=== PATIENT | female | born 1945 | race Caucasian/White ===

== ENCOUNTER 2018-06-21 09:45 | Inpatient (IN) | payer MEDICARE, BC ==
[2018-06-21] VITALS (25 sets, daily range): BP systolic 70–138; BP diastolic 29–97; BMI 32.6
[~2018-06-21] VITALS: Ht 172.7 cm; Wt 97.1 kg
[2018-06-21] MEDS ORDERED: CARAFATE1 G/10 ML PO (10:32)
[2018-06-21] MEDS ORDERED: GALZIN50 MG PO (10:33)
[2018-06-21] MEDS ORDERED: CILOSTAZOL100 MG PO (10:33)
[2018-06-21] MEDS ORDERED: NEURONTIN600 MG PO (10:33)
[2018-06-21] MEDS ORDERED: LOPID600 MG PO (10:33)
[2018-06-21] MEDS ORDERED: FUROSEMIDE20 MG PO (10:34)
[2018-06-21] MEDS ORDERED: PLAVIX75 MG PO (10:34)
[2018-06-21] MEDS ORDERED: VITAMIN C WIT1000 MG PO (10:34)
[2018-06-21] MEDS ORDERED: COLACE100 MG PO (10:34)
[2018-06-21] MEDS ORDERED: LEVOXYL50 MCG PO (10:35)
[2018-06-21] MEDS ORDERED: PENTOXIFYLLINE400 MG PO (10:35)
[2018-06-21] MEDS ORDERED: SINGULAIR10 MG PO (10:35)
[2018-06-21] MEDS ORDERED: VESICARE10 MG PO (10:35)
[2018-06-21] MEDS ORDERED: PANTOPRAZOLE SO40 M1 IV (10:36)
[2018-06-21 11:08] LABS: BASOPHILS 0.2 % (0-2); EOSINOPHILS 0.4 % (0-7); HEMATOCRIT 32.6 % (36.0-48.0); HEMOGLOBIN 9.6 g/dL (12-16); IMMATURE GRANULOCYTES 0.7 % (0-5); LYMPHOCYTES 33.4 % (15-50); MCH 21.8 pg (26.0-34.0); MCHC 29.4 g/dL (31.0-37.0); MCV 74.1 fL (80.0-100.0); MEAN PLATELET VOLUME 9.5 fL (7.4-10.4); MONOCYTES 8.9 % (2-11); NEUTROPHILS 56.4 % (40-80); PLATELET COUNT 103 10x3/uL (130-400); RDW 17.3 % (11.5-14.5); WBC 5.5 10x3/uL (4.8-10.8)
[2018-06-21 12:30] LABS: APTT 25.5 SECONDS (22.8-39.4); INR 1.05 (0.85-1.17); PROTIME 13.2 SECONDS (11.6-15.0)
[2018-06-21 12:31] LABS: % SATURATION 6 % (15-55); IRON 27 ug/dl (35-150); TOTAL IRON BIND CAPACITY 447 ug/dl (260-445); UNSAT IRON BIND CAPACITY 420 ug/dl (150-375)
--- NOTE | 2018-06-21 13:19 | NUR ---
PT ARRIVED ON UNIT, HOOKED TO MONITORS, PT IS ALERT AND ORIENTED, ON 2L NC, VSS, CALL LIGHT IN REACH
--- NOTE | 2018-06-21 14:30 | NUR ---
UPDATE GIVEN TO DR. HAMMER AT THIS TIME, NEW ORDERS RECIEVED
--- NOTE | 2018-06-21 15:27 | MORECARE ---
CASE MANAGEMENT DISCHARGE SUMMARY PATIENT: MANOJ BURRIS UNIT: [id number] ADM DATE: 06/21/18 AGE: 73 : 47 SEX: F ROOM/BED: D[facility] AUTHOR: TYLOR HERNANDEZ PHYSICIAN: REFERRING PHYSICIAN: RAYMOND ASHBY MD DATE OF SERVICE: 06/21/18 Discharge Plan Patient Name: MANOJ BURRIS Facility: [facility]:[place] : 1945 Planned Disposition: Anticipated Discharge Date: Discharge Date: Expected LOS: Initial Reviewer: [email or web address] Initial Review Date: 06/21/2018 Generated: 06/21/18 4:27 pm Patient Name: MANOJ BURRIS Page 66241 at 1527 All edits/amendments must be made on the electronic document DICTATION DATE: 06/21/18 152 CLINICAL TRAINING COORDINATOR: MATY 06/21/18 1526 RPT#: [id number] DC DATE: STATUS: ADM IN [facility] [address] [place] [address] END OF REPORT
[2018-06-21 16:00] LABS: CKMB 1.2 U/L (0.0-3.6); CREATINE KINASE 97 UL (21-215); TROPONIN-I 0.018 ng/mL (0.000-0.060)
--- NOTE | 2018-06-21 16:17 | NUR ---
DR. CARTER AT BEDSIDE, UPDATE GIVEN
--- NOTE | 2018-06-21 16:25 | NUR ---
EGD IN PROCESS AT THIS TIME, PT TOLERATING WELL
--- NOTE | 2018-06-21 16:57 | NUR ---
UPDATE CALLED TO ELISEO ESPOSITO TO TRANSFER TO THE FLOOR
--- NOTE | 2018-06-21 17:40 | NUR ---
REPORT CALLED TO MED SURG,
--- NOTE | 2018-06-21 18:15 | NUR ---
PT RECIEVED TO FLOOR. PT AAO X3 TO PERSON, PLACE, ADN TIME. DENIES NEEDS AT THIS TIME.
[2018-06-21 21:59] LABS: CKMB 1.1 U/L (0.0-3.6); CREATINE KINASE 102 UL (21-215); TROPONIN-I 0.025 ng/mL (0.000-0.060)
[2018-06-22 04:22] VITALS: BP 137/62
[2018-06-22 04:51] LABS: BASOPHILS 0.2 % (0-2); EOSINOPHILS 0.4 % (0-7); HEMATOCRIT 28.3 % (36.0-48.0); HEMOGLOBIN 8.2 g/dL (12-16); IMMATURE GRANULOCYTES 0.2 % (0-5); LYMPHOCYTES 36.3 % (15-50); MCH 21.5 pg (26.0-34.0); MCV 74.3 fL (80.0-100.0); MEAN PLATELET VOLUME 9.6 fL (7.4-10.4); MONOCYTES 12.1 % (2-11); NEUTROPHILS 50.8 % (40-80); PLATELET COUNT 95 10x3/uL (130-400); RBC 3.81 10x6/uL (4.00-5.40); RDW 17.2 % (11.5-14.5); WBC 4.8 10x3/uL (4.8-10.8)
[2018-06-22 05:25] LABS: CALC OSMOLALITY 287 mosm/kg (275-300); CALCIUM 7.4 mg/dL (8.5-10.1); CARBON DIOXIDE 23.4 mmol/L (21.0-32.0); CHLORIDE - SERUM 113 mmol/L (98-107); CKMB 1.2 U/L (0.0-3.6); CREATINE KINASE 75 UL (21-215); CREATININE - SERUM 0.5 mg/dL (0.6-1.3); GLUCOSE 83 mg/dL (74-106); POTASSIUM - SERUM 3.4 mmol/L (3.5-5.1); SODIUM 145 mmol/L (136-145); UREA NITROGEN 12 mg/dL (7-18); eGFR NON AFRICAN AMERICAN > 90 mL/min (90-120)
[2018-06-22 07:14] LABS: FOLATE (FOLIC ACID) - SERUM 10.8 ng/mL (>3.0)
[2018-06-22 08:40] VITALS: BP 150/69
--- NOTE | 2018-06-22 13:00 | NUR ---
PATIENT OFF FLOOR FOR MRI
[2018-06-22 13:18] LABS: % SATURATION 4 % (15-55); IRON 15 ug/dl (35-150); TOTAL IRON BIND CAPACITY 359 ug/dl (260-445); UNSAT IRON BIND CAPACITY 344 ug/dl (150-375)
--- NOTE | 2018-06-22 16:41 | MORECARE ---
CASE MANAGEMENT DISCHARGE SUMMARY PATIENT: MANOJ BURRIS UNIT: [id number] ADM DATE: 06/21/18 AGE: 73 : 47 SEX: F ROOM/BED: D.2238 AUTHOR: TYLOR HERNANDEZ PHYSICIAN: REFERRING PHYSICIAN: RAYMOND ASHBY MD DATE OF SERVICE: 06/22/18 Discharge Plan Patient Name: MANOJ BURRIS Facility: [facility]:[place] : 1945 Planned Disposition: Home Health Service Anticipated Discharge Date: Discharge Date: Expected LOS: Initial Reviewer: [email or web address] Initial Review Date: 06/21/2018 Generated: 06/22/18 5:41 pm Last DP export: 06/21/18 2:27 Patient Name: MANOJ BURRIS Page [id number] at 1641 All edits/amendments must be made on the electronic document DICTATION DATE: 06/22/181640 OILER AND GREASER: MATY 06/22/181640 RPT#: [id number] DC DATE: STATUS: ADM IN [facility] [address] [place] [address] END OF REPORT
--- NOTE | 2018-06-22 16:48 | MORECARE ---
CASE MANAGEMENT DISCHARGE SUMMARY PATIENT: MANOJ BURRIS UNIT: [id number] ADM DATE: 06/21/18 AGE: 73 : 47 SEX: F ROOM/BED: D.2238 AUTHOR: MARY,DOC PHYSICIAN: REFERRING PHYSICIAN: RAYMOND ASHBY MD DATE OF SERVICE: 06/22/18 Discharge Plan Patient Name: MANOJ BURRIS Facility: [facility]:[place] : 1945 Planned Disposition: Home Health Service Anticipated Discharge Date: Discharge Date: Expected LOS: Initial Reviewer: [email or web address] Initial Review Date: 06/21/2018 Generated: 06/22/18 5:48 pm Comments DCP- Discharge Planning Updated by [email or web address]: Lanie Celaya on 06/22/18 3:[address] CM attempted to visit x3. Physical address [address]/ [place]. Her son lives with her. She states she is presently on service ith [employer]. Her plan is to return to home w/ home health. She has ramps to enter her home. No DME needs. [facility]acy[facility] [place] [facility] CM will follow to assist with needs. DCPIA - Discharge Planning Initial Assessment Updated by [email or web address]: Lanie Celaya on 06/22/18 4:41 pm * Is the patient Alert and Oriented? Yes * How many steps to enter\\exit or inside your home? ramps * PCP DR Luis Enrique Avendaño * Pharmacy [facility] [place] for short term meds * Preadmission Environment Home with Family * ADLs Partial Dependent * Partial ADLs (Assistance needed) Bathing Dressing Transfers * Other Equipment patient has electric wheel chair, wheelchair, walker, shower bench, commode States "I've got it all". denies any dme needs * List name and contact numbers for known caregivers / representatives who currently or will assist patient after discharge: franki brooke- [phone] * Verbal permission to speak to the caregivers and representatives has been obtained from the patient. No * Community resources currently utilized Home Health * Please name any agencies selected above. [facility] * Additional services required to return to the preadmission environment? No * Can the patient safely return to the preadmission environment? Yes * Has this patient been hospitalized within the prior 30 days at any hospital? No Last DP export: 06/22/18 3:41 pm Patient Name: MANOJ BURRIS Page [id number] at 1648 All edits/amendments must be made on the electronic document DICTATION DATE: 06/22/181646 ANESTHESIOLOGY CRNA: MATY 06/22/181646 RPT#: [id number] DC DATE: STATUS: ADM IN [facility] [address] [place] [address] END OF REPORT
[2018-06-22 20:00] VITALS: BP 119/72
[2018-06-22 22:36] LABS: APPEARANCE CLEAR (CLEAR); BACTERIA FEW /hpf (NONE SEEN); BILIRUBIN NEGATIVE (NEGATIVE); COLOR YELLOW (YELLOW); EPITHELIAL CELLS 0-5 /hpf (0-5); GLUCOSE NEGATIVE (NEGATIVE); KETONE NEGATIVE (NEGATIVE); NITRITE NEGATIVE (NEGATIVE); PROTEIN TRACE mg/dL (NEGATIVE); RED CELLS - URINE 25-50 /hpf (0-5); SPECIFIC GRAVITY 1.015 (1.005-1.020); UROBILINOGEN NORMAL (NORMAL)
--- NOTE | 2018-06-23 02:02 | NUR ---
LYING IN BED WITH EYES CLOSED. RESP EVEN AND NONLABORED. NO DISTRESS. CL IN REACH.
[2018-06-23 04:00] VITALS: BP 125/47
--- NOTE | 2018-06-23 04:46 | NUR ---
PT COMPLAINS PF SLIGHT PAIN IN GROIN AREA. LEFT, INNER THIGH/GROIN AREA REDDENED. WASHED, BARIER SPRAY APPLIED AND POWDER APPLIED PER PT REQUEST. ALSO PT C/O FULL FEELING IN BLADDER. FOLOEY TUBING WAS KINKED BETWEEN LEGS. STRAIGHTENED OUT AND SECURED IN STAT LONG, LAYING OVER RIGHT THIGH. PT REPORTS RELIEF. 1200CC CLEAR YELLOW URINE EMPTIED FROM CATHETER.
[2018-06-23 04:53] LABS: BASOPHILS 0.4 % (0-2); EOSINOPHILS 0.2 % (0-7); HEMATOCRIT 29.7 % (36.0-48.0); HEMOGLOBIN 8.6 g/dL (12-16); IMMATURE GRANULOCYTES 0.2 % (0-5); LYMPHOCYTES 33.5 % (15-50); MCH 21.3 pg (26.0-34.0); MCV 73.7 fL (80.0-100.0); MEAN PLATELET VOLUME 9.2 fL (7.4-10.4); MONOCYTES 14.5 % (2-11); NEUTROPHILS 51.2 % (40-80); PLATELET COUNT 87 10x3/uL (130-400); RBC 4.03 10x6/uL (4.00-5.40); RDW 16.7 % (11.5-14.5); WBC 5.4 10x3/uL (4.8-10.8)
[2018-06-23 05:14] LABS: CALCIUM 8.2 mg/dL (8.5-10.1); CARBON DIOXIDE 25.7 mmol/L (21.0-32.0); CHLORIDE - SERUM 107 mmol/L (98-107); CREATININE - SERUM 0.5 mg/dL (0.6-1.3); SODIUM 142 mmol/L (136-145); UREA NITROGEN 10 mg/dL (7-18); eGFR NON AFRICAN AMERICAN > 90 mL/min (90-120)
[2018-06-23 05:31] LABS: CALC OSMOLALITY 284 mosm/kg (275-300); GLUCOSE 144 mg/dL (74-106); POTASSIUM - SERUM 4.3 mmol/L (3.5-5.1)
[2018-06-23 08:51] VITALS: BP 125/70
[2018-06-23 13:50] VITALS: Ht 172.7 cm; Wt 97.1 kg
[2018-06-23 16:00] VITALS: BP 137/57; BP 137/74
[2018-06-23 21:55] VITALS: BP 137/67
--- NOTE | 2018-06-24 00:44 | NUR ---
AWAKE. RECEIVING INSULIN AT THIS TIME PER PRIMARY NURSE. NO DISTRESS. CL IN REACH.
[2018-06-24 02:09] VITALS: BP 119/50
[2018-06-24 05:15] VITALS: BP 96/54
--- NOTE | 2018-06-24 05:30 | NUR ---
ROMAN CATH CARE PROVIDED. PT REPORTS RELIEF OF ITCHING/BURNING.
[2018-06-24 07:07] LABS: BASOPHILS 0.2 % (0-2); EOSINOPHILS 0.4 % (0-7); HEMATOCRIT 28.6 % (36.0-48.0); HEMOGLOBIN 8.6 g/dL (12-16); IMMATURE GRANULOCYTES 0.2 % (0-5); LYMPHOCYTES 32.8 % (15-50); MCH 21.6 pg (26.0-34.0); MCHC 30.1 g/dL (31.0-37.0); MEAN PLATELET VOLUME 9.9 fL (7.4-10.4); MONOCYTES 12.5 % (2-11); NEUTROPHILS 53.9 % (40-80); PLATELET COUNT 75 10x3/uL (130-400); RBC 3.99 10x6/uL (4.00-5.40); RDW 16.5 % (11.5-14.5); WBC 4.7 10x3/uL (4.8-10.8)
[2018-06-24 07:12] LABS: CALC OSMOLALITY 273 mosm/kg (275-300); CALCIUM 8.3 mg/dL (8.5-10.1); CARBON DIOXIDE 24.1 mmol/L (21.0-32.0); CHLORIDE - SERUM 105 mmol/L (98-107); CREATININE - SERUM 0.5 mg/dL (0.6-1.3); GLUCOSE 156 mg/dL (74-106); POTASSIUM - SERUM 3.7 mmol/L (3.5-5.1); SODIUM 136 mmol/L (136-145); UREA NITROGEN 11 mg/dL (7-18); eGFR NON AFRICAN AMERICAN > 90 mL/min (90-120)
[2018-06-24 07:16] LABS: MCV 71.7 fL (80.0-100.0)
[2018-06-24 08:10] VITALS: BP 106/61
[2018-06-24 12:16] VITALS: BP 144/66
[2018-06-24 16:09] VITALS: BP 139/66
[2018-06-24 20:00] VITALS: BP 113/62
[2018-06-25] VITALS: BP 134/69
--- NOTE | 2018-06-25 03:16 | NUR ---
PT SLEEPING. BREATHING EVEN AND UNLABORED. WILL CONTINUE POC.
[2018-06-25 04:00] VITALS: BP 151/68
[2018-06-25 07:33] LABS: BASOPHILS 0.2 % (0-2); EOSINOPHILS 0.5 % (0-7); HEMATOCRIT 28.9 % (36.0-48.0); HEMOGLOBIN 8.5 g/dL (12-16); IMMATURE GRANULOCYTES 0.2 % (0-5); LYMPHOCYTES 34.9 % (15-50); MCH 21.1 pg (26.0-34.0); MCHC 29.4 g/dL (31.0-37.0); MCV 71.9 fL (80.0-100.0); MONOCYTES 14.7 % (2-11); NEUTROPHILS 49.5 % (40-80); PLATELET COUNT 78 10x3/uL (130-400); RBC 4.02 10x6/uL (4.00-5.40); RDW 16.5 % (11.5-14.5); WBC 4.4 10x3/uL (4.8-10.8)
[2018-06-25 07:56] LABS: CALC OSMOLALITY 286 mosm/kg (275-300); CALCIUM 8.1 mg/dL (8.5-10.1); CARBON DIOXIDE 25.7 mmol/L (21.0-32.0); CHLORIDE - SERUM 107 mmol/L (98-107); CREATININE - SERUM 0.6 mg/dL (0.6-1.3); GLUCOSE 158 mg/dL (74-106); POTASSIUM - SERUM 3.6 mmol/L (3.5-5.1); SODIUM 142 mmol/L (136-145); UREA NITROGEN 15 mg/dL (7-18); eGFR NON AFRICAN AMERICAN > 90 mL/min (90-120)
[2018-06-25 08:20] LABS: PLATELET ESTIMATE DECREASED
[2018-06-25 08:21] LABS: ANISOCYTOSIS 1+
[2018-06-25 08:29] VITALS: BP 144/54
--- NOTE | 2018-06-25 08:45 | NUR ---
PATIENT RESITNG WITH NO NEEDS VOICED. ROMAN CATH DRAINING YELLOW URINE TO BEDISDE DRAINAGE. DENIES PAIN AT THIS TIME.
[2018-06-25 11:42] VITALS: BP 116/62
--- NOTE | 2018-06-25 15:55 | NUR ---
ROMAN CATH REMOVED, PATIENT TOLERATED WELL
--- NOTE | 2018-06-25 16:09 | MORECARE ---
CASE MANAGEMENT DISCHARGE SUMMARY PATIENT: MANOJ BURRIS UNIT: [id number] ADM DATE: 06/21/18 AGE: 73 : 47 SEX: F ROOM/BED: D.2238 AUTHOR: MARY,DOC PHYSICIAN: REFERRING PHYSICIAN: RAYMOND ASHBY MD DATE OF SERVICE: 06/25/18 Discharge Plan Patient Name: MANOJ BURRIS Facility: [facility]:[place] : 1945 Planned Disposition: Home Health Service Anticipated Discharge Date: Discharge Date: Expected LOS: Initial Reviewer: [email or web address] Initial Review Date: 06/21/2018 Generated: 06/25/18 5:08 pm Comments DCP- Discharge Planning Updated by [email or web address]: Radha Sarabia on 06/25/18 3:[address] Patient Name: MANOJ BURRIS Encounter No: [id number] : 1945 Primary Insurance: MEDICARE A & B Anticipated DC Date: Planned Disposition: Home Health Service External Planned Provider: : DCP follow-up note: Patient in agreement with discharge plan. Spoke with Yennifer at [employer] [facility] and clinical faxed. States her son will take her home.No changes to plan. Case management will follow and assist as needed. Radha Herbkeon DCP- Discharge Planning Updated by [email or web address]: Lanie Celaya on 06/22/18 3:[address] CM attempted to visit x3. Physical address [address]/ [place]. Her son lives with her. She states she is presently on service ith [employer] [facility]. Her plan is to return to home w/ home health. She has ramps to enter her home. No DME needs. [facility] [place] [facility] CM will follow to assist with needs. DCPIA - Discharge Planning Initial Assessment Updated by [email or web address]: Lanie Celaya on 06/22/18 4:41 pm * Is the patient Alert and Oriented? Yes * How many steps to enter\\exit or inside your home? ramps * PCP DR Luis Enrique Avendaño * Pharmacy [facility] in [place] for short term meds * Preadmission Environment Home with Family * ADLs Partial Dependent * Partial ADLs (Assistance needed) Bathing Dressing Transfers * Other Equipment patient has electric wheel chair, wheelchair, walker, shower bench, commode States "I've got it all". denies any dme needs * List name and contact numbers for known caregivers / representatives who currently or will assist patient after discharge: franki brooke- [phone] * Verbal permission to speak to the caregivers and representatives has been obtained from the patient. No * Community resources currently utilized Home Health * Please name any agencies selected above. [facility] * Additional services required to return to the preadmission environment? No * Can the patient safely return to the preadmission environment? Yes * Has this patient been hospitalized within the prior 30 days at any hospital? No Coverage Notice Reviewer: [email or web address] Silvano Sarabia Notice Issued Date-Time: 06/25/2018 16:02 Notice Type: IM Discharge Notice Notice Delivered To: Patient Relationship to Patient: Self Planner/Scheduler Name: Delivery Method: HAND - Hand Delivered Shanice Days: Prior Verbal Notification: Recipient Understood Notice: Yes Recipient Signature: Yes Med Rec Note Co-signed by Attending: Coverage Notice Comment: IMM explained, signed, copy given, original placed in MR Last DP export: 06/22/18 3:48 pm Patient Name: MANOJ BURRIS Page 69640 at 1609 All edits/amendments must be made on the electronic document DICTATION DATE: 06/25/181607 LOCAL TANKER TRUCK DRIVER: MATY 06/25/181607 RPT#: [id number] DC DATE: STATUS: ADM IN [facility] [address] [place] [address] END OF REPORT
[2018-06-25 16:13] VITALS: BP 113/49
--- NOTE | 2018-06-25 16:18 | MORECARE ---
CASE MANAGEMENT DISCHARGE SUMMARY PATIENT: MANOJ BURRIS UNIT: [id number] ADM DATE: 06/21/18 AGE: 73 : 47 SEX: F ROOM/BED: D.2238 AUTHOR: MARY,DOC PHYSICIAN: REFERRING PHYSICIAN: RAYMOND ASHBY MD DATE OF SERVICE: 06/25/18 Discharge Plan Patient Name: MANOJ BURRIS Facility: [facility]:[place] : 1945 Planned Disposition: Home Health Service Anticipated Discharge Date: Discharge Date: Expected LOS: Initial Reviewer: [email or web address] Initial Review Date: 06/21/2018 Generated: 06/25/18 5:18 pm Comments DCP- Discharge Planning Updated by [email or web address]: Radha Sarabia on 06/25/18 3:[address] Patient Name: MANOJ BURRIS Encounter No: [id number] : 1945 Primary Insurance: MEDICARE A & B Anticipated DC Date: Planned Disposition: Home Health Service External Planned Provider: : DCP follow-up note: Patient in agreement with discharge plan. Spoke with Yennifer at [email or web address] [facility] and clinical faxed. States her son will take her home.No changes to plan. Case management will follow and assist as needed. Radha Herbkeon DCP- Discharge Planning Updated by [id number]: Lanie Celaya on 06/22/18 3:[address] CM attempted to visit x3. Physical address [address]/ [place]. Her son lives with her. She states she is presently on service ith [employer] [facility]. Her plan is to return to home w/ home health. She has ramps to enter her home. No DME needs. [facility] [place] [facility] CM will follow to assist with needs. DCPIA - Discharge Planning Initial Assessment Updated by [email or web address]: Lanie Celaya on 06/22/18 4:41 pm * Is the patient Alert and Oriented? Yes * How many steps to enter\\exit or inside your home? ramps * PCP DR Luis Enrique Avendaño * Pharmacy [facility] [place] for short term meds * Preadmission Environment Home with Family * ADLs Partial Dependent * Partial ADLs (Assistance needed) Bathing Dressing Transfers * Other Equipment patient has electric wheel chair, wheelchair, walker, shower bench, commode States "I've got it all". denies any dme needs * List name and contact numbers for known caregivers / representatives who currently or will assist patient after discharge: franki brooke- [phone] * Verbal permission to speak to the caregivers and representatives has been obtained from the patient. No * Community resources currently utilized Home Health * Please name any agencies selected above. [employer] * Additional services required to return to the preadmission environment? No * Can the patient safely return to the preadmission environment? Yes * Has this patient been hospitalized within the prior 30 days at any hospital? No External Providers External Provider: [facility] Next Contact Date: Service Request Date: Service Type: Resolution: Reviewer: Comments: Coverage Notice Reviewer: [email or web address] Silvano Sarabia Notice Issued Date-Time: 06/25/2018 16:02 Notice Type: IM Discharge Notice Notice Delivered To: Patient Relationship to Patient: Self Ship Scraper Name: Delivery Method: HAND - Hand Delivered Shanice Days: Prior Verbal Notification: Recipient Understood Notice: Yes Recipient Signature: Yes Med Rec Note Co-signed by Attending: Coverage Notice Comment: IMM explained, signed, copy given, original placed in MR Last DP export: 06/25/18 3:08 pm Patient Name: MANOJ BURRIS Page 68989 at 1618 All edits/amendments must be made on the electronic document DICTATION DATE: 06/25/181617 AUTHOR: MATY 06/25/181617 RPT#: [id number] DC DATE: STATUS: ADM IN [facility] [address] [place] [address] END OF REPORT
--- NOTE | 2018-06-25 18:06 | NUR ---
IV REMOVED WITH CATH INTACT, NO REDNESSOR EDEMA AT SITE. DISCHARGE INSTRUCTIONS GIVEN WITH PATIENT VOICING UNDERSTANDING. PATIENT TAKEN TO PRIVATE CAR VIA WHEELCHAIR, SON AT SIDE
--- NOTE | 2018-06-29 07:24 | MORECARE ---
CASE MANAGEMENT DISCHARGE SUMMARY PATIENT: MANOJ BURRIS UNIT: [id number] ADM DATE: 06/21/18 AGE: 73 : 47 SEX: F ROOM/BED: D.2238 AUTHOR: MARY,DOC PHYSICIAN: REFERRING PHYSICIAN: RAYMOND ASHBY MD DATE OF SERVICE: 06/29/18 Discharge Plan Patient Name: MANOJ BURRIS Facility: [facility]:[place] : 1945 Planned Disposition: Home Health Service Anticipated Discharge Date: Discharge Date: 06/25/2018 Expected LOS: 0 Initial Reviewer: [email or web address] Initial Review Date: 06/21/2018 Generated: 06/29/18 8:24 am Comments DCP- Discharge Planning Updated by [email or web address]: Radha Sarabia on 06/25/18 3:[address] Patient Name: MANOJ BURRIS Encounter No: [id number] : 1945 Primary Insurance: MEDICARE A & B Anticipated DC Date: Planned Disposition: Home Health Service External Planned Provider: : DCP follow-up note: Patient in agreement with discharge plan. Spoke with Yennifer at [employer] [facility] and clinical faxed. States her son will take her home.No changes to plan. Case management will follow and assist as needed. Radha Sarabia DCP- Discharge Planning Updated by [email or web address]: Lanie Celaya on 06/22/18 3:[address] CM attempted to visit x3. Physical address [address]/ [place]. Her son lives with her. She states she is presently on service ith [employer] [facility]. Her plan is to return to home w/ home health. She has ramps to enter her home. No DME needs. [facility] [place] [facility] CM will follow to assist with needs. DCPIA - Discharge Planning Initial Assessment Updated by [email or web address]: Lanie Celaya on 06/22/18 4:41 pm * Is the patient Alert and Oriented? Yes * How many steps to enter\\exit or inside your home? ramps * PCP DR Luis Enrique Avendaño * Pharmacy [facility] [place] for short term meds * Preadmission Environment Home with Family * ADLs Partial Dependent * Partial ADLs (Assistance needed) Bathing Dressing Transfers * Other Equipment patient has electric wheel chair, wheelchair, walker, shower bench, commode States "I've got it all". denies any dme needs * List name and contact numbers for known caregivers / representatives who currently or will assist patient after discharge: franki brooke- [phone] * Verbal permission to speak to the caregivers and representatives has been obtained from the patient. No * Community resources currently utilized Home Health * Please name any agencies selected above. [facility] * Additional services required to return to the preadmission environment? No * Can the patient safely return to the preadmission environment? Yes * Has this patient been hospitalized within the prior 30 days at any hospital? No Coverage Notice Reviewer: [email or web address] Silvano Sarabia Notice Issued Date-Time: 06/25/2018 16:02 Notice Type: IM Discharge Notice Notice Delivered To: Patient Relationship to Patient: Self Basket Hand Weaver Name: Delivery Method: HAND - Hand Delivered Shanice Days: Prior Verbal Notification: Recipient Understood Notice: Yes Recipient Signature: Yes Med Rec Note Co-signed by Attending: Coverage Notice Comment: IMM explained, signed, copy given, original placed in MR Last DP export: 06/25/18 3:18 pm Patient Name: MANOJ BURRIS Page 99079 at 0724 All edits/amendments must be made on the electronic document DICTATION DATE: 06/29/18723 CLINICAL NURSING PROFESSOR: MATY 06/29/18723 RPT#: [id number] DC DATE:06/25/18 STATUS: DIS IN [facility] [address] [place] [address] END OF REPORT
--- NOTE | 2018-07-06 13:28 | EC ---
PATIENT:MANOJ BURRIS DATE OF SERVICE: 06/21/18 SEX: F MEDICAL RECORD: [id number] DATE OF : [birth year] LOCATION:D.[facility] [place] AGE OF PATIENT: 73 ADMISSION DATE: 06/21/18 REFERRING PHYSICIAN: INTERPRETING PHYSICIAN: DARIO ROSS MD ECHOCARDIOGRAM REPORT ECHO CHARGES 4 ECHO COMPLETE Date: 06/21/18 CLINICAL DIAGNOSIS: LVF ECHOCARDIOGRAPHIC MEASUREMENTS (adult normal given) AC root (d.<3.7cm) 3.0 cm LV Septum d (<1.2 cm> 1.3 cm Valve Excursion 0.8 cm LV Septum (systole) 1.4 cm Left Atria (s.<4.0cm> 3.8 cm LVPW d(<1.2cm) 1.0 cm RV (d.<2.3cm) 3.8 cm LVPW (sytole) 1.1 cm LV diastole(<5.6CM) 5.1 cm MV E-F(>70mm/sec) cm LV systole 4.6 cm LVOT Diameter 1.7 cm MV exc.(>10mm) cm Est.ejection fraction (50-75%) % DOPPLER: LVIT cm/sec A 145 cm/sec E 136 cm/sec LA cm/sec RVSP 18.3 mmHg LVOT 187 cm/sec AOP1/2T m/s Asc. 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 Ross TAPE# PACS Pericardial Effusion N DATE OF SERVICE: 06/21/2018 ECHOCARDIOGRAM FINDINGS: 1. Left ventricular chamber size is within normal limits. Left ventricular systolic function is normal. Overall ejection fraction estimated at 55%. 2. Left atrium, right atrium, and right ventricle chamber sizes are within normal limits. 3. Valvular structures have normal structure and motion. ECHOCARDIOGRAM REPORT [id number] MANOJ BURRIS 4. Doppler interrogation reveals no significant valvular insufficiency or stenosis. 5. No evidence of pericardial effusion or left ventricular thrombus. TRANSINT:[id number] Voice Confirmation ID: [id number] DOCUMENT ID: [id number] DARIO ROSS MD at 1328 CC: [id number] DICTATION DATE: 06/21/18 164 FLOOR HELPER: 06/21/18 2351 DIS IN 06/25/18 [facility] [address] [place] [id number]
[2018-07-27] MEDS ORDERED: HUMALOG MIX 75/10 ML SC (13:50)
[2018-07-27] MEDS ORDERED: OXYBUTYNIN CHLOR5 M1 PO (13:50)
== END 2018-06-25 18:08 | disposition home health service (06) | DRG 314 ==
LOC: D.ER 09:45 → D.MS 12:50 → D.ICU 12:50 → D.MS 17:49
PROVIDERS: Emergency Medicine; Internal Medicine Gastroenterology; ADMIT Internal Medicine Nephrology
PROC: 0DB68ZX Excision of Stomach, Via Natural or Artificial Opening Endoscopic, Diagnostic (ICD-10-PCS; principal; 2018-06-21 15:44)
DX: I95.9 Hypotension, unspecified (principal); R57.8 Other shock; K29.01 Acute gastritis with bleeding; N39.0 Urinary tract infection, site not specified; D64.9 Anemia, unspecified; E11.9 Type 2 diabetes mellitus without complications; I10 Essential (primary) hypertension; S82.301A Unspecified fracture of lower end of right tibia, initial encounter for closed fracture; W19.XXXA Unspecified fall, initial encounter; Z89.612 Acquired absence of left leg above knee

== ENCOUNTER 2018-07-28 05:55 | Day surgery (SDC) | payer MEDICARE, BC ==
--- NOTE | 2018-07-27 13:57 | NUR ---
HORTENCIA NOTE: DR. FRANCIS NOTIFITED PATIENT CURRENTLY TAKING PLETAL 100MG BID.
[~2018-07-28] VITALS: Ht 172.7 cm; Wt 93.4 kg
[~2018-07-28 05:55] MED LIST: CARAFATE1 G/10 ML PO; CILOSTAZOL100 MG PO; COLACE100 MG PO; FUROSEMIDE20 MG PO; GALZIN50 MG PO; HUMALOG MIX 75/10 ML SC; LEVOXYL50 MCG PO; LOPID600 MG PO; NEURONTIN600 MG PO; OXYBUTYNIN CHLOR5 M1 PO; PANTOPRAZOLE SO40 M1 IV; PENTOXIFYLLINE400 MG PO; PLAVIX75 MG PO; SINGULAIR10 MG PO; VESICARE10 MG PO; VITAMIN C WIT1000 MG PO
[2018-07-28] MEDS ORDERED: CILOSTAZOL50 MG PO (07:29)
[2018-07-28 07:44] VITALS: BP 130/64; Ht 172.7 cm; Wt 93.4 kg
--- NOTE | 2018-07-28 11:20 | NUR ---
REC'D FROM BY IVY BARROSO. FAMILY AT BEDSIDE. JONNYE IN [place].
--- NOTE | 2018-07-28 11:50 | NUR ---
FL TRAY SERVED TO PT. SOME BLOODY DTAINAGE NOTED ON DRESSING LEFT TO SHOULDER. SLING IN USE ABLE TO MOVE FINGERS. ICE NO SHOULDER.
--- NOTE | 2018-07-28 12:20 | NUR ---
TOLERATED DIET. ASSISTED TO BATHROOM VIA PERSONAL WC. PT IS LLE AMPUTEE AND CURRENT SURGERY TO LUE. ASSISTED BY 2 STAFF. VOIDED WITHOUT DIFFICULTY. IV DC'D WITH CATHETER INTACT. ASSISTED WITH DRESSING.
--- NOTE | 2018-07-28 12:45 | NUR ---
WRITTEN AND VERBAL DC INST. GIVEN TO PT AND FAMILY. VERBALIZED UNDERSTANDING.
--- NOTE | 2018-07-28 12:55 | NUR ---
DC'D HOME WITH FAMILY VIA PRIVATE VEHICLE. TAKEN TO VEHICLE VIA WC. STABLE AT TIME OF DC.
== END 2018-07-28 12:55 | disposition home or self-care (01) ==
LOC: D.OPS 05:55 → D.PAN 08:15 → D.OPS 12:55
DX: M75.42 Impingement syndrome of left shoulder (principal); M75.102 Unspecified rotator cuff tear or rupture of left shoulder, not specified as traumatic; S43.402A Unspecified sprain of left shoulder joint, initial encounter; M19.012 Primary osteoarthritis, left shoulder; M65.812 Other synovitis and tenosynovitis, left shoulder